=== PATIENT | female | born 1945 | race Caucasian/White ===

== ENCOUNTER → 2023-12-12 | Day surgery (SDC) | payer OTHER ==
[~2023-12-12] MED LIST: Lidocaine 1% PF 5 ML VIAL ONE; Lidocaine Viscous Sol 2% 15 ml UD Cup ONE; PROPOFOL 20 ML ONE
[2023-12-12 11:45] VITALS: BP 111/69; TEMP 97.1
== END ==
LOC: CSHSDC 10:44
PROVIDERS: ATTEND Specialist
PROC: 5A2204Z Restoration of Cardiac Rhythm, Single (ICD-10-PCS; principal; 2023-12-12)
PROC: B246ZZ4 Ultrasonography of Right and Left Heart, Transesophageal (ICD-10-PCS; 2023-12-12)
DX: I48.19 Other persistent atrial fibrillation (principal); I10 Essential (primary) hypertension; J45.909 Unspecified asthma, uncomplicated; R07.2 Precordial pain; E11.9 Type 2 diabetes mellitus without complications; K92.2 Gastrointestinal hemorrhage, unspecified; E66.9 Obesity, unspecified; Z90.49 Acquired absence of other specified parts of digestive tract; Z98.890 Other specified postprocedural states; Z79.899 Other long term (current) drug therapy; Z79.890 Hormone replacement therapy; Z88.5 Allergy status to narcotic agent; Z87.19 Personal history of other diseases of the digestive system; Z68.27 Body mass index [BMI] 27.0-27.9, adult
CPT/HCPCS: 92960; 93005; 93312; J2704; 93010

== ENCOUNTER 2024-02-29 11:43 | Inpatient (IN) | payer OTHER ==
[2024-02-29 13:50] VITALS: BMI 35.2
[2024-02-29] MEDS ORDERED: Calcium Carbonate 500 MG ChewTAB PO PRN (14:16)
[2024-02-29] MEDS ORDERED: Acetaminophen 325 MG TAB PO PRN (14:16)
[2024-02-29] MEDS ORDERED: Senokot S 8.6-50 MG TAB PO PRN (14:16)
[2024-02-29] MEDS ORDERED: Benzonatate 100 MG CAP PO PRN (14:20)
[2024-02-29] MEDS ORDERED: Ipratropium/Albuterol 3 ML NEB NEB PRN (14:20)
[2024-02-29] MEDS: Furosemide 40 MG (4 mL) VIAL SLOW IVP SCH (16:00)
[2024-02-29] MEDS: Digoxin 0.5 MG/2 ML AMP SLOW IVP SCH (16:00)
[2024-02-29] MEDS ORDERED: Glucagon 1 MG/ML KIT IM PRN (16:31)
[2024-02-29] MEDS ORDERED: Dextrose 50% Abboject 50 ML SYRINGE SLOW IVP PRN (16:31)
[2024-02-29] MEDS ORDERED: Dextrose 5% in Water 1,000 ML IV PRN (16:31)
[2024-02-29] MEDS ORDERED: Insulin Lispro 100 UNIT/ML 10 ML VIAL SC PRN ×2 (16:31)
[2024-02-29] MEDS: Carvedilol 3.125 MG TAB PO SCH (17:06)
[2024-02-29] MEDS: cefTRIAXone\\ROCEPHIN 1 GM in Sodium Chloride 0.9% 100 ML IVPB SCH (17:08)
[2024-02-29] MEDS: Sacubitril 24MG/Valsartan 26 MG TAB PO SCH (21:28)
[2024-02-29] MEDS: Apixaban 5 MG TAB PO SCH (21:28)
[2024-03-01 05:34] LABS: #Basophils Less than 0.03 10x3/uL (0.0-0.2); #Eosinophils Less than 0.03 10x3/uL (0.0-0.5); #Monocytes 0.38 10x3/uL (0.0-1.1); #Neutrophils 5.64 10x3/uL (1.5-8.4); %Lymphocytes 5.5 % (18.0-47.0); %Neutrophils 88.3 % (40.0-75.0); Hemoglobin 13.8 g/dL (12.0-15.5); Mean Corpuscular HGB CONC 32.9 g/dL (32.0-36.0); Mean Corpuscular Hemoglobin 29.5 pg (27.0-33.0); Mean Corpuscular Volume 89.7 fL (81.6-98.3); Red Blood Cell (RBC) Count 4.68 10x6/uL (3.90-5.03); White Blood Cell (WBC) Count 6.38 10x3/uL (3.5-10.5)
[2024-03-01 05:40] LABS: Platelet Count 134 10x3/uL (150-450)
[2024-03-01 05:45] LABS: ALT (SGPT) 13 U/L (Less than 34); AST (SGOT) 24 U/L (11-34); Albumin 3.1 g/dL (3.1-4.5); Alkaline Phosphatase 69 U/L (40-110); Anion Gap 13 mmol/L (10-20); BUN (Urea Nitrogen) 16 mg/dL (9.8-20.1); Bilirubin, Total 1.1 mg/dL (0.3-1.2); Calc. Creatinine Clearance 88 mL/min (70-130); Calcium 8.8 mg/dL (7.8-10.44); Carbon Dioxide 28 mmol/L (23-31); Chloride 105 mmol/L (98-107); Estimated GFR 77; Globulin 3.2 g/dL (2.4-3.5); Glucose 124 mg/dL (83-110); Protein, Total 6.3 g/dL (5.8-8.1); Sodium 142 mmol/L (136-145)
[2024-03-01] MEDS ORDERED: Furosemide 40 MG (4 mL) VIAL SLOW IVP SCH (06:00)
[2024-03-01] MEDS: Calcium Carbonate 600 MG TAB PO SCH (08:57)
[2024-03-01] MEDS: Ascorbic Acid 500 mg Chewable Tablet PO SCH (08:57)
[2024-03-01] MEDS: Furosemide 40 MG (4 mL) VIAL SLOW IVP SCH (08:57)
[2024-03-01] MEDS ORDERED: Lisinopril 20 MG TAB PO SCH (09:00)
[2024-03-01] MEDS ORDERED: dilTIAZem CD 120 MG CAP PO SCH (09:00)
[2024-03-01] MEDS: Furosemide 40 MG (4 mL) VIAL ONE (12:32)
[2024-03-01] MEDS: Digoxin 0.5 MG/2 ML AMP ONE (12:32)
[2024-03-02 05:03] LABS: #Basophils Less than 0.03 10x3/uL (0.0-0.2); #Eosinophils 0.14 10x3/uL (0.0-0.5); #Monocytes 0.42 10x3/uL (0.0-1.1); #Neutrophils 3.91 10x3/uL (1.5-8.4); %Basophils 0.2 % (0.0-2.0); %Eosinophils 2.8 % (0.0-6.0); %Lymphocytes 11.6 % (18.0-47.0); %Monocytes 8.3 % (0.0-10.0); %Neutrophils 76.9 % (40.0-75.0); Hematocrit 45.2 % (34.9-44.5); Hemoglobin 14.8 g/dL (12.0-15.5); Mean Corpuscular HGB CONC 32.7 g/dL (32.0-36.0); Mean Corpuscular Hemoglobin 29.5 pg (27.0-33.0); Mean Platelet Volume 9.9 fL (7.4-10.4); Platelet Count 184 10x3/uL (150-450); RBC Distribution Width 14.2 % (11.5-14.5); Red Blood Cell (RBC) Count 5.02 10x6/uL (3.90-5.03); White Blood Cell (WBC) Count 5.08 10x3/uL (3.5-10.5)
[2024-03-02 05:21] LABS: Anion Gap 13 mmol/L (10-20); BUN (Urea Nitrogen) 20 mg/dL (9.8-20.1); Calc. Creatinine Clearance 84 mL/min (70-130); Calcium 8.7 mg/dL (7.8-10.44); Carbon Dioxide 29 mmol/L (23-31); Chloride 103 mmol/L (98-107); Estimated GFR 76; Glucose 84 mg/dL (83-110); Potassium 3.4 mmol/L (3.5-5.1); Sodium 142 mmol/L (136-145)
[2024-03-02] MEDS ORDERED: KETAMINE 100 MG/ML (5ML VIAL) ONE (08:16)
[2024-03-02] MEDS ORDERED: Midazolam HCl 5 mg/5 ml Vial ONE (08:17)
[2024-03-02] MEDS ORDERED: Amiodarone 200 MG TAB PO SCH ×2 (10:30→21:00)
[2024-03-02] MEDS: Potassium Chloride 20 MEQ TAB PO SCH (12:08)
[2024-03-02] MEDS: Carvedilol 3.125 MG TAB PO SCH (12:14)
[2024-03-02] MEDS ORDERED: Carvedilol 6.25 MG TAB PO SCH (17:00)
[2024-03-02] MEDS: Carvedilol 6.25 MG TAB PO SCH (18:08)
[2024-03-02] MEDS: Amiodarone 200 MG TAB PO SCH (21:08)
[2024-03-02] MEDS: Sacubitril 49 MG/Valsartan 51 MG TABLET PO SCH (21:08)
[2024-03-03 04:29] LABS: #Basophils Less than 0.03 10x3/uL (0.0-0.2); #Eosinophils 0.14 10x3/uL (0.0-0.5); #Monocytes 0.35 10x3/uL (0.0-1.1); #Neutrophils 2.55 10x3/uL (1.5-8.4); %Basophils 0.3 % (0.0-2.0); %Eosinophils 3.9 % (0.0-6.0); %Monocytes 9.7 % (0.0-10.0); %Neutrophils 71.1 % (40.0-75.0); Hematocrit 39.2 % (34.9-44.5); Hemoglobin 13.1 g/dL (12.0-15.5); Mean Corpuscular HGB CONC 33.4 g/dL (32.0-36.0); Mean Corpuscular Hemoglobin 29.6 pg (27.0-33.0); Mean Corpuscular Volume 88.7 fL (81.6-98.3); Mean Platelet Volume 9.4 fL (7.4-10.4); Platelet Count 180 10x3/uL (150-450); RBC Distribution Width 14.1 % (11.5-14.5); Red Blood Cell (RBC) Count 4.42 10x6/uL (3.90-5.03); White Blood Cell (WBC) Count 3.59 10x3/uL (3.5-10.5)
[2024-03-03 04:48] LABS: Anion Gap 14 mmol/L (10-20); BUN (Urea Nitrogen) 23 mg/dL (9.8-20.1); Calc. Creatinine Clearance 88 mL/min (70-130); Calcium 8.7 mg/dL (7.8-10.44); Carbon Dioxide 27 mmol/L (23-31); Chloride 104 mmol/L (98-107); Estimated GFR 81; Glucose 95 mg/dL (83-110); Potassium 3.6 mmol/L (3.5-5.1); Sodium 141 mmol/L (136-145)
[2024-03-03] MEDS: cefTRIAXone\\ROCEPHIN 1 GM in Sodium Chloride 0.9% 100 ML IVPB SCH (09:27)
[2024-03-03] MEDS: Ondansetron PF 4 MG/2 ML Vial IVP PRN (09:29)
[2024-03-03] MEDS: Furosemide 40 MG (4 mL) VIAL SLOW IVP SCH (15:04)
[2024-03-04 10:06] LABS: #Basophils Less than 0.03 10x3/uL (0.0-0.2); #Eosinophils 0.12 10x3/uL (0.0-0.5); #Monocytes 0.31 10x3/uL (0.0-1.1); #Neutrophils 2.45 10x3/uL (1.5-8.4); %Basophils 0.6 % (0.0-2.0); %Eosinophils 3.6 % (0.0-6.0); %Lymphocytes 12.1 % (18.0-47.0); %Monocytes 9.4 % (0.0-10.0); Hematocrit 44.6 % (34.9-44.5); Hemoglobin 14.4 g/dL (12.0-15.5); Mean Corpuscular HGB CONC 32.3 g/dL (32.0-36.0); Mean Corpuscular Hemoglobin 28.8 pg (27.0-33.0); Mean Corpuscular Volume 89.2 fL (81.6-98.3); Mean Platelet Volume 9.4 fL (7.4-10.4); Platelet Count 184 10x3/uL (150-450); White Blood Cell (WBC) Count 3.31 10x3/uL (3.5-10.5)
[2024-03-04 10:20] LABS: Anion Gap 14 mmol/L (10-20); BUN (Urea Nitrogen) 21 mg/dL (9.8-20.1); Calc. Creatinine Clearance 70 mL/min (70-130); Calcium 8.9 mg/dL (7.8-10.44); Carbon Dioxide 31 mmol/L (23-31); Chloride 101 mmol/L (98-107); Estimated GFR 63; Glucose 186 mg/dL (83-110); Potassium 3.5 mmol/L (3.5-5.1); Sodium 142 mmol/L (136-145)
[2024-03-04] MEDS: Carvedilol 3.125 MG TAB PO SCH (17:18)
[2024-03-05 04:46] LABS: #Basophils Less than 0.03 10x3/uL (0.0-0.2); #Monocytes 0.39 10x3/uL (0.0-1.1); #Neutrophils 2.09 10x3/uL (1.5-8.4); %Basophils 0.3 % (0.0-2.0); %Eosinophils 3.3 % (0.0-6.0); %Lymphocytes 15.3 % (18.0-47.0); %Monocytes 12.7 % (0.0-10.0); %Neutrophils 68.1 % (40.0-75.0); Hematocrit 43.2 % (34.9-44.5); Mean Corpuscular HGB CONC 32.4 g/dL (32.0-36.0); Mean Corpuscular Hemoglobin 28.7 pg (27.0-33.0); Mean Corpuscular Volume 88.7 fL (81.6-98.3); Mean Platelet Volume 9.6 fL (7.4-10.4); Platelet Count 167 10x3/uL (150-450); Red Blood Cell (RBC) Count 4.87 10x6/uL (3.90-5.03); White Blood Cell (WBC) Count 3.07 10x3/uL (3.5-10.5)
[2024-03-05 05:13] LABS: Anion Gap 13 mmol/L (10-20); BUN (Urea Nitrogen) 23 mg/dL (9.8-20.1); Calc. Creatinine Clearance 82 mL/min (70-130); Calcium 8.9 mg/dL (7.8-10.44); Carbon Dioxide 30 mmol/L (23-31); Chloride 101 mmol/L (98-107); Estimated GFR 77; Glucose 87 mg/dL (83-110); Potassium 3.6 mmol/L (3.5-5.1); Sodium 140 mmol/L (136-145)
[2024-03-05] MEDS ORDERED: Furosemide 40 MG (4 mL) VIAL SLOW IVP SCH (09:00)
[2024-03-05] MEDS: Furosemide 40 MG TAB PO SCH (10:02)
[2024-03-05] MEDS: Amiodarone 200 MG TAB PO SCH (10:02)
[2024-03-05 11:40] VITALS: BP 126/74; TEMP 98.1
== END 2024-03-05 13:00 | disposition home or self-care (01) | DRG 291 ==
LOC: CSHTELE 13:16
PROVIDERS: ADMIT Internal Medicine; ATTEND Family Medicine
PROC: B24BZZ4 Ultrasonography of Heart with Aorta, Transesophageal (ICD-10-PCS; principal; 2024-03-02)
PROC: B24BZZ4 Ultrasonography of Heart with Aorta, Transesophageal (ICD-10-PCS; 2024-03-02)
DX: I13.0 Hypertensive heart and chronic kidney disease with heart failure and stage 1 through stage 4 chronic kidney disease, or unspecified chronic kidney disease (principal); I50.23 Acute on chronic systolic (congestive) heart failure; J96.01 Acute respiratory failure with hypoxia; I48.19 Other persistent atrial fibrillation; N39.0 Urinary tract infection, site not specified; Z66 Do not resuscitate; E11.22 Type 2 diabetes mellitus with diabetic chronic kidney disease; N18.2 Chronic kidney disease, stage 2 (mild); E78.5 Hyperlipidemia, unspecified; I42.0 Dilated cardiomyopathy; E87.6 Hypokalemia; I35.0 Nonrheumatic aortic (valve) stenosis; E66.9 Obesity, unspecified; Z96.641 Presence of right artificial hip joint; Z88.5 Allergy status to narcotic agent; Z90.49 Acquired absence of other specified parts of digestive tract; Z90.710 Acquired absence of both cervix and uterus; Z68.32 Body mass index [BMI] 32.0-32.9, adult; B96.20 Unspecified Escherichia coli [E. coli] as the cause of diseases classified elsewhere
CPT/HCPCS: 36415; 36416; 71045; 80048; 80053; 81001; 83735; 83880; 84443; 84484; 85025; 87086; 87186; 87428; 92960; 93005; 93010; 93306; 93312; 94760; 94762; 96374; 96375; J0696; J1160; J1940; J2250; J2405; J2919; J7620

== ENCOUNTER 2024-11-25 19:21 | Emergency (ER) | payer OTHER ==
[2024-11-25 20:15] LABS: #Basophils Less than 0.03 10x3/uL (0.0-0.2); #Eosinophils 0.05 10x3/uL (0.0-0.5); #Monocytes 0.45 10x3/uL (0.0-1.1); #Neutrophils 4.94 10x3/uL (1.5-8.4); %Basophils 0.2 % (0.0-2.0); %Eosinophils 0.8 % (0.0-6.0); %Lymphocytes 8.7 % (18.0-47.0); %Monocytes 7.5 % (0.0-10.0); %Neutrophils 82.3 % (40.0-75.0); Hematocrit 40.0 % (34.9-44.5); Hemoglobin 13.2 g/dL (12.0-15.5); Mean Corpuscular Hemoglobin 30.6 pg (27.0-33.0); Mean Corpuscular Volume 92.6 fL (81.6-98.3); Platelet Count 161 10x3/uL (150-450); Red Blood Cell (RBC) Count 4.32 10x6/uL (3.90-5.03); White Blood Cell (WBC) Count 6.00 10x3/uL (3.5-10.5)
[2024-11-25 20:32] LABS: ALT (SGPT) 10 U/L (Less than 34); AST (SGOT) 28 U/L (11-34); Albumin 3.5 g/dL (3.1-4.5); Alkaline Phosphatase 90 U/L (40-110); Anion Gap 15 mmol/L (10-20); BUN (Urea Nitrogen) 23 mg/dL (9.8-20.1); Bilirubin, Total 0.7 mg/dL (0.3-1.2); Calc. Creatinine Clearance 0 mL/min (70-130); Calcium 9.1 mg/dL (7.8-10.44); Carbon Dioxide 28 mmol/L (23-31); Chloride 106 mmol/L (98-107); Globulin 3.4 g/dL (2.4-3.5); Glucose 154 mg/dL (83-110); Potassium 4.7 mmol/L (3.5-5.1); Sodium 144 mmol/L (136-145)
[2024-11-25 20:35] LABS: Troponin I Less than 0.010 ng/mL (< 0.028)
[2024-11-25 21:42] LABS: Glucose, Urine (Dipstick) Normal (Negative); Leukocyte Negative (Negative); Protein, Urine (Dipstick) Negative (Neg-Trace); Specific Gravity, Urine 1.020 (1.005-1.030)
[2024-11-25 22:01] LABS: Bacteria/HPF 4+ HPF (None Seen); CAUTI Indications for Culture Alt mental st,lethar; RBC/HPF 0-3 HPF (0-3); WBC/HPF 0-3 HPF (0-3)
[2024-11-25 22:02] LABS: Urine Culture Reflex No No
[2024-11-25] MEDS ORDERED: cefTRIAXone (ROCEPHIN) 1 GM VIAL ONE (23:03)
== END 2024-11-26 00:02 | disposition home or self-care (01) ==
LOC: CSHERS 19:21
DX: N39.0 Urinary tract infection, site not specified (principal); R29.700 NIHSS score 0; E66.9 Obesity, unspecified; E11.9 Type 2 diabetes mellitus without complications; I48.91 Unspecified atrial fibrillation; I50.9 Heart failure, unspecified; Z79.899 Other long term (current) drug therapy
CPT/HCPCS: 70450; 71045; 80053; 81001; 82962; 84484; 85025; 93005; 96365; 99285; J0696; 36415; 36416